=== PATIENT | female | born 1955 | race African-American/Black ===

== ENCOUNTER 2017-10-13 22:05 | Emergency (ER) | payer OTHER ==
[2017-10-13 23:23] VITALS: BP 162/67
== END 2017-10-13 23:23 | disposition home or self-care (01) ==
LOC: ED 22:05
DX: S20.212A Contusion of left front wall of thorax, initial encounter (principal); I10 Essential (primary) hypertension; E11.9 Type 2 diabetes mellitus without complications; J45.909 Unspecified asthma, uncomplicated; V49.9XXA Car occupant (driver) (passenger) injured in unspecified traffic accident, initial encounter; W22.10XA Striking against or struck by unspecified automobile airbag, initial encounter; Y93.89 Activity, other specified; Y99.8 Other external cause status; Y92.89 Other specified places as the place of occurrence of the external cause
CPT/HCPCS: Q0092